=== PATIENT | female | born 1955 | race Caucasian/White ===

== ENCOUNTER 2020-08-03 11:11 | Outpatient (REF) | payer BC, SELFPAY ==
[2020-08-03 11:51] LABS: MANUAL DIFF FLAG NO
[2020-08-03 11:57] LABS: Basophils Percent Auto 0.4 % (0-2); Eosinophils Absolute Auto 0.2 X10*3/uL (0.0-0.4); Eosinophils Percent Auto 2.8 % (0-4); Hematocrit 38.7 % (37-47); Hemoglobin 13.1 g/dl (12.0-16.0); Imm Gran Abs Auto 0.03 X10*3/uL (0.00-0.03); Imm Gran Pct Auto 0.5 % (0.0-0.4); Lymphocytes Absolute Auto 1.4 X10*3/uL (1.2-4.9); Lymphocytes Percent Auto 24.2 % (20-40); Mean Corpuscular HGB Conc 33.9 g/dl (31.0-35.0); Mean Corpuscular Hemoglobin 34.7 pg (27.0-33.0); Mean Corpuscular Volume 102.7 fL (80-98); Mean Platelet Volume 10.1 fL (9.4-12.3); Monocytes Absolute Auto 0.5 X10*3/uL (0.1-1.2); Monocytes Percent Auto 8.1 % (2-11); Neutrophils Absolute Auto 3.7 X10*3/uL (2.0-8.3); Platelet Count 166 X10*3/uL (160-400); Red Blood Count 3.77 X10*6/uL (4.20-5.50); Red Cell Distribution Width 11.9 % (11.0-16.0); White Blood Count 5.7 X10*3/uL (4.8-10.8)
[2020-08-03 12:40] LABS: Alanine Aminotransferase 23 U/L (0-31); Albumin Level 4.2 g/dL (3.5-5.0); Alkaline Phosphatase 70 U/L (39-117); Anion Gap 12 (12-20); Aspartate Amino Transferase 25 U/L (5-31); Bilirubin Total 0.7 mg/dL (0.0-1.0); Blood Urea Nitrogen 17 mg/dL (9-16); Calcium 9.3 mg/dL (8.4-10.2); Carbon Dioxide 30 mmol/L (22-29); Chloride 101 mmol/L (96-108); Cholesterol 243 mg/dL; Estimated Glomerular Filt Rate > 60; Glucose Fasting 84 mg/dL (60-99); HDL Cholesterol 94 mg/dL; LDL Cholesterol Calculated 138 mg/dl; Potassium 4.3 mmol/L (3.3-5.1); Sodium 139 mmol/L (135-145); Total Protein 7.3 g/dL (6.5-8.0); Triglycerides 56 mg/dL
[2020-08-03 12:44] LABS: Carbamazepine Tegretol < 2.0 mcg/mL (5.0-12.0); Vitamin B12 1259 pg/mL (200-900)
== END 2020-08-03 11:12 | disposition home or self-care (01) ==
LOC: HO.LAB 11:11
PROVIDERS: PCP Internal Medicine; Visit Provider Internal Medicine
DX: Z00.00 Encounter for general adult medical examination without abnormal findings (principal); Z86.69 Personal history of other diseases of the nervous system and sense organs
CPT/HCPCS: 36415; 80053; 80061; 80156; 80184; 82306; 82607; 85025

== ENCOUNTER → 2021-06-03 13:12 | Outpatient (REF) | payer BC, SELFPAY ==
--- NOTE | 2021-06-03 | ECG_ITS ---
Hook-up date: 2021-06-03 13:46:00 Duration: 47:59:00 Test Indications: SYNCOPE Medications: 369357 QRS complexes 116 Ventricular ectopics which represent <1 % of total QRS comp. 58 Supraventricular ectopics which represent <1 % of total QRS comp. * Paced QRS complexs which represent % of total QRS comp. VENTRICULAR ECTOPY 110 Isolated 0 Bigeminal Cycles 3 Couplets 0 Runs 0 Beats in Runs * Beats LONGEST at * BPM at :: -- * Beats FASTEST at * BPM at :: -- SUPRAVENTRICULAR ECTOPY 50 Isolated 2 Couplets 1 Runs 4 Beats in Runs 4 Beats LONGEST at 180 BPM at 15:09:51 2021-06-04 4 Beats FASTEST at 180 BPM at 15:09:51 2021-06-04 HEART RATES 56 MIN at 22:27:51 2021-06-03 70 AVG 111 MAX at 10:48:53 2021-06-04 LONGEST RR 1.3200 secs at 03:52:42 2021-06-05 S-T LEVELS Channel 1 - 128 mm at 13:46:00 2021-06-03 - 128 mm at 13:46:00 2021-06-03 Channel 2 - 128 mm at 13:46:00 2021-06-03 - 128 mm at 13:46:00 2021-06-03 Channel 3 - 128 mm at 03:30:51 -- - 128 mm at 03:30:51 Underlying rhythm is sinus; Average ventricular rate 70/min; range 56-111/min; Rare supraventricular ectopy; Rare and isolated ventricular ectopy; 3 couplets; Dizziness in patient diary without specific time noted; however no findings to correlate on holter tracing. Referred By: Gibson Webster Overread By: TARA MEDINA
== END ==
LOC: HO.CARD 13:12
PROVIDERS: Visit Provider Psychiatry & Neurology Neurology
DX: R55 Syncope and collapse (principal)
CPT/HCPCS: 93225; 93226

== ENCOUNTER 2021-10-27 16:08 | Outpatient (REF) | payer BC, SELFPAY ==
--- NOTE | ~2021-10-27 | US_ITS ---
EXAMINATION: US VENOUS ULTRASOUND WITH DOPPLER LOWER EXTREMITY, LEFT CLINICAL INFORMATION: Left calf pain. Evaluate for deep vein thrombosis. COMPARISON: None TECHNIQUE: Ultrasound of the deep veins is performed from the hip to the calf with compression sonography and color and pulse Doppler assessment. Spectral analysis with color-flow imaging is performed. FINDINGS: The common femoral vein is compressible and exhibits a normal phasic waveform; this suggests that the iliac veins are widely patent above. Within the proximal thigh, the visualized profunda femoris vein is normal. The examined greater saphenous vein and saphenofemoral junction are normal. Superficial femoral vein is patent in the proximal, mid and distal thigh. Popliteal vein is normal to the level of the trifurcation. On compression robins scale and color Doppler images, the visualized posterior tibial and peroneal veins of the calf are normal. No evidence of Fernandes's cyst. US/US venous duplex LE LT IMPRESSION: No evidence of deep vein thrombosis in the left lower extremity.
[2021-10-27 16:49] LABS: MANUAL DIFF FLAG NO
[2021-10-27 18:11] LABS: Basophils Percent Auto 0.7 % (0-2); Eosinophils Absolute Auto 0.2 X10*3/uL (0.0-0.4); Eosinophils Percent Auto 3.8 % (0-4); Hematocrit 34.9 % (37.0-47.0); Hemoglobin 12.1 g/dl (12.0-16.0); Imm Gran Abs Auto 0.01 X10*3/uL (0.00-0.03); Imm Gran Pct Auto 0.2 % (0.0-0.4); Lymphocytes Absolute Auto 1.6 X10*3/uL (1.2-4.9); Lymphocytes Percent Auto 38.7 % (20-40); Mean Corpuscular HGB Conc 34.7 g/dl (31.0-35.0); Mean Corpuscular Hemoglobin 35.1 pg (27.0-33.0); Mean Corpuscular Volume 101.2 fL (80.0-98.0); Monocytes Absolute Auto 0.4 X10*3/uL (0.1-1.2); Neutrophils Percent Auto 46.6 % (45-73); Platelet Count 160 X10*3/uL (160-400); Red Blood Count 3.45 X10*6/uL (4.20-5.50); Red Cell Distribution Width 11.9 % (11.0-16.0); White Blood Count 4.2 X10*3/uL (4.8-10.8)
[2021-10-27 18:38] LABS: Alanine Aminotransferase 15 U/L (0-31); Albumin Level 4.4 g/dL (3.5-5.0); Alkaline Phosphatase 60 U/L (39-117); Anion Gap 14 (12-20); Aspartate Amino Transferase 24 U/L (5-31); Bilirubin Total 0.4 mg/dL (0.0-1.0); Blood Urea Nitrogen 7 mg/dL (9-16); C Reactive Protein 2.36 mg/dL (< or = 0.50); Calcium 9.3 mg/dL (8.4-10.2); Carbon Dioxide 28 mmol/L (22-29); Chloride 98 mmol/L (96-108); Estimated Glomerular Filt Rate > 60; Glucose Random 79 mg/dL (60-115); Potassium 4.4 mmol/L (3.3-5.1); Sodium 136 mmol/L (135-145); Total Protein 7.4 g/dL (6.5-8.0)
== END 2021-10-27 16:09 | disposition home or self-care (01) ==
LOC: HO.US 16:08
PROVIDERS: PCP Internal Medicine; Visit Provider Internal Medicine
DX: R60.0 Localized edema (principal); M79.662 Pain in left lower leg
CPT/HCPCS: 36415; 80053; 84443; 85025; 86140; 93971

== ENCOUNTER 2022-02-24 09:20 | Outpatient (REF) | payer BC, SELFPAY ==
[2022-02-24 12:48] LABS: Alanine Aminotransferase 14 U/L (0-31); Albumin Level 4.1 g/dL (3.5-5.0); Alkaline Phosphatase 74 U/L (39-117); Aspartate Amino Transferase 22 U/L (5-31); Bilirubin Total 0.3 mg/dL (0.0-1.0); Blood Urea Nitrogen 12 mg/dL (9-16); C Reactive Protein 0.15 mg/dL (< or = 0.50); Cholesterol 230 mg/dL; Estimated Glomerular Filt Rate > 60; Glucose Random 76 mg/dL (60-115)
[2022-02-24 13:37] LABS: Anion Gap 14 (12-20); Calcium 8.8 mg/dL (8.4-10.2); Carbon Dioxide 28 mmol/L (22-29); Chloride 99 mmol/L (96-108); Sodium 137 mmol/L (135-145)
== END 2022-02-24 09:21 | disposition home or self-care (01) ==
LOC: HO.HMGCLDS 09:20
PROVIDERS: PCP Internal Medicine; Visit Provider Internal Medicine
DX: R10.9 Unspecified abdominal pain (principal); E78.00 Pure hypercholesterolemia, unspecified; K80.20 Calculus of gallbladder without cholecystitis without obstruction
CPT/HCPCS: 36415; 80053; 82465; 86140

== ENCOUNTER 2022-03-10 09:27 | Outpatient (REF) | payer BC, SELFPAY ==
--- NOTE | ~2022-03-10 | US_ITS ---
EXAMINATION: US PELVIS COMPLETE US PELVIS ENDOVAGINAL CLINICAL INFORMATION: Pelvic pain COMPARISON: Report from 09/17/2013 TECHNIQUE: Transabdominal and transvaginal images of the pelvis were obtained. FINDINGS: UTERUS: Anteverted. Normal size and contour, measuring 6.5 x 3.1 x 3.8 cm (cervix to fundus x AP x transverse). Uniform, homogeneous endometrium, 2-3 mm in width. There are a few scattered calcifications in the uterine myometrium, nonspecific. 1.6 cm and 1.2 cm fundal leiomyomata are seen. RIGHT OVARY: Right ovary not seen. No adnexal mass. LEFT OVARY: Normal-appearing left ovary measures 1.4 x 0.8 x 1.1 cm. No adnexal mass. FREE FLUID: Small physiologic volume of free fluid in the pelvis pelvic free fluid. US/US pelvic and transvaginal IMPRESSION: Small fundal leiomyomata. Thin endometrial stripe. Right ovary not seen. No adnexal mass.
--- NOTE | ~2022-03-10 | US_ITS ---
EXAMINATION: US ABDOMEN COMPLETE CLINICAL INFORMATION: Abdominal pain. COMPARISON: None TECHNIQUE: Real-time imaging of the abdominal viscera. FINDINGS: PANCREAS: Normal. ABDOMINAL AORTA: The proximal, mid, and distal segments are normal in caliber. INFERIOR VENA CAVA: Visualized portions are normal. LIVER: Normal. The liver is normal in size. The liver contour is normal. Parenchymal echogenicity is normal. No focal hepatic lesion. There is no intrahepatic biliary duct dilatation seen. GALLBLADDER: The gallbladder is physiologically distended. Multiple mobile gallstones are present. No evidence of gallbladder wall thickening or pericholecystic fluid. The gallbladder wall is upper limits of normal in thickness. The fence rider's measurement is exaggerated. COMMON BILE DUCT: Normal in caliber measuring 0.4 cm in diameter. RIGHT KIDNEY: Normal. No hydronephrosis. No renal calculi or focal parenchymal lesions. The kidney measures 9.7 cm in maximum dimension. LEFT KIDNEY: Nonspecific 1-2 mm echogenic focus in the lower pole of the left kidney possibly a nonshadowing stone or vascular calcification. No hydronephrosis. No renal calculi or focal parenchymal lesions. The kidney measures 9.4 cm in maximum dimension. SPLEEN: Normal. The spleen measures 7.7 cm in maximum dimension. FREE FLUID: None. US/US abdomen complete IMPRESSION: 1-2 mm nonshadowing stone or vascular calcification in the lower pole of the left kidney.
== END 2022-03-10 09:28 | disposition home or self-care (01) ==
LOC: HO.HMGCX 09:27
PROVIDERS: PCP Internal Medicine; Visit Provider Internal Medicine
DX: R10.0 Acute abdomen (principal); K82.9 Disease of gallbladder, unspecified
CPT/HCPCS: 76700; 76830; 76856

== ENCOUNTER 2024-04-25 12:17 | Outpatient (REF) | payer MEDICARE, SELFPAY ==
--- NOTE | ~2024-04-25 | US_ITS ---
EXAMINATION: MM DIAGNOSTIC DIGITAL BREAST TOMOSYNTHESIS, BILATERAL Limited right breast ultrasound. CLINICAL INFORMATION: 68-year-old female with a right breast palpable lump in the upper outer quadrant for 2 months. Family history of breast cancer including the patient's sister. COMPARISON: Mammography: Comparison is made with relevant prior exams. TECHNIQUE: Digital breast mammography with tomosynthesis is performed in both the craniocaudal and mediolateral oblique views along with computer-aided detection (CAD). Limited right breast ultrasound. FINDINGS: The breasts are heterogeneously dense, which may obscure small masses (ACR BI-RADS breast composition Category c). BB marker in the upper outer breast at site of palpable lump without underlying abnormality. There are no significant masses, abnormal calcifications, or other abnormalities. Targeted color Doppler ultrasound scanning in the lateral right breast area of patient's palpable lump from 7-11 o'clock demonstrates normal fibronodular breast tissue. There is no sonographic abnormality. Results are provided to the patient at time of visit by the technologist. US/US breast RT limited mamm only IMPRESSION: Left: Negative. Right: No mammographic or sonographic abnormality to account for the patient's right breast palpable lump. Recommend clinical evaluation and follow-up. Given patient's family history of breast cancer, palpable lump without mammographic or sonographic abnormality and dense breast tissue recommend breast MRI with contrast for further evaluation. Breast MRI would need to be ordered by the patient's providing clinician. ASSESSMENT: BI-RADS BI-RADS 1 - Negative RECOMMENDATION: 1 year F/U This patient's information was entered into a reminder system with a target due date for their next mammogram. Electronically signed by: Thuy Wade DO 04/28/2024 09:44 AM [facility]
--- OUTSIDE RECORDS SUMMARY | 2024-04-25 12:47 | XMS_ITS | Continuity of Care Document ---
Author Organization [facility] Address [address] [place] [address] Phone Care Team Providers Care Motorcycle Mechanic Name Role Phone Jade Alaniz PA-C Unavailable Unavailable Allergies, Adverse Reactions, Alerts Substance Reaction Status Criticality No Known Allergies Active No Inform ation Medications Medication Instructions Dosage Effective Dates (start - stop) Status Comments LevETIRAcetam 500MG TAB TAKE ONE TABLET BY MOUTH TWICE DAILY 500 MG - Active primidone 250 mg tablet take 1 tablet by oral route 2 times every day for maintenance 250 MG - Active Epitol 200 mg tablet take 1 tablet by or al route every 12 hours 200 MG - Active Procedures Procedure Date ROUTINE VENIPUNCTURE OFFICE/OUTPATIENT VISIT, EST OFFICE/OUTPATIENT VISIT, EST OFFICE/OUTPATIENT VISIT, NEW Composite, 1 Surface, Anterior 09 Composite, 1 Surface, Anterior 09 Composite, 1 Surface, Anterior 09 Composite, 1 Surface, Anterior 09 Prophylaxis, Adult Topical fluor w/o prophy adult 09 Limited Oral Evaluation Periapical, First Film Periapical ea add Bitweings, 4 Films Advance Directives Directive Yes / No Effective Date File Name No Information Encounters Encounter Description Practice Location Reason(s) For Visit Diagnoses Date Provider Providers Copied on Encounter [facility], [address], [place], [place], [id number] , [place] tel:[phone] [facility] [place] No Information 6 Katty Hansen. [address] [facility], [id number], [place], [place], [id number], [place]. tel:[phone] [facility], [address], [place], [place], [id number] , [place] tel:[phone] [facility] [place] No Information 6 Katty Hansen. [address] [facility], [id number], [place], [place], [id number], [place]. tel:[phone] [facility], [address], [place], [place], [id number] , [place] tel:[phone] [facility] [place] Hyponatremia 6 Katty Hansen. [address] [facility], [id number], [place], [place], [id number], [place]. tel:[phone] [facility], [address], [place], [place], [id number] , [place] tel:[phone] [facility] [place] Blood draw only (chief complaint) Hyponatremia 6 Katty Hansen. [address] [facility], [id number], [place], [place], [id number], [place]. tel:[phone] [facility], [address], [place], [place], [id number] , [place] tel:[phone] [facility] Hyponatremia 6 Katty Hansen. [address] [facility], [id number], [place], [place], [id number], [place]. tel:[phone] OFFICE/OUTPA TIENT VISIT, EST [facility], [address], [place], [place], [id number] , [place] tel:[phone] [facility] Neurologist referral (chief complaint) Seizure disorder 6 Katty Hansen. [address] [facility], [id number] , [place], [place], [id number], [place]. tel:[phone] OFFICE/OUTPA TIENT VISIT, EST [facility], [address], [place], [place], [id number] , [place] tel:[phone] [facility] [place] general check up (chief complaint)se izure (chief complaint) Seizure disorder 6 No Information OFFICE/OUTPA TIENT VISIT, NEW [facility], [address], [place], [place], [id number] , [place] tel:[phone] [facility] [place] Seizure (new) (chief complaint)es tablish care (chief complaint) [facility] No Information [facility], [address], [place], [place], [id number] , [place] tel:[phone] [facility] [place] No Information 9 No Information [facility], [address], [place], [place], [id number] , [place] tel:[phone] [facility] [place] No Information 9 No Information [facility], [address], [place], [place], [id number] , [place] tel:[phone] [facility] [place] No Information 9 No Information [facility], [address], [place], [place], [id number] , [place] tel:[phone] [facility] [place] No Information 8 No Information Family History Family Member Type Diagnosis Age At Onset No Information Payers Payer name Insurance type Covered democrat ID Authoriza tion(s) [facility] Adult Expansion CAP [id number] [facility] Code 18 [id number] Social History Type Description Quantity Date Captured Comments Sex Female Smoking Status No Information Chief Complaint And Reason For Visit No Information Plan Of Treatment Date Type Action Status Goal Flu Preservative Free, 5yr+ and OB (Tri). Due on due Goal FOBT. Due on due Goal Breast exam. Due on due Goal Colonoscopy. Due on due Goal PAP (21 + yr). Due on due Goal Tdap. Due on due Goal CONTRACT NEGOTIATOR exam. Due on due Goal Mammogram. Due on due Goal Tdap. Due on due Goal PAP (21 + yr). Due on due Goal FOBT. Due on due Goal CONTRACT NEGOTIATOR exam. Due on due Goal Breast exam. Due on due Goal Flu Preservative Free, 5yr+ and OB (Tri). Due on due Goal Mammogram. Due on due Goal Colonoscopy. Due on due Goal Flu Preservative Free, 5yr+ and OB (Tri). Due on due Goal Breast exam. Due on due Goal Mammogram. Due on due Goal CONTRACT NEGOTIATOR exam. Due on due Goal Colonoscopy. Due on due Goal Tdap. Due on due Goal PAP (21 + yr). Due on due Goal FOBT. Due on due Goal CONTRACT NEGOTIATOR exam. Due on due Goal Tdap. Due on due Goal Breast exam. Due on due Goal FOBT. Due on due Goal Colonoscopy. Due on due Goal Mammogram. Due on 6 due Goal Flu Preservative Free, 5yr+ and OB (Tri). Due on due Goal PAP (21 + yr). Due on due Goal Mammogram. Due on 6 due Goal CONTRACT NEGOTIATOR exam. Due on due Goal Tdap. Due on due Goal Colonoscopy. Due on due Goal PAP (21 + yr). Due on due Goal FOBT. Due on due Goal Breast exam. Due on due Goal Flu Preservative Free, 5yr+ and OB (Tri). Due on due Goal Tdap. Due on due Goal CONTRACT NEGOTIATOR exam. Due on due Goal Colonoscopy. Due on due Goal FOBT. Due on due Goal PAP (21 + yr). Due on due Goal Mammogram. Due on 6 due Goal Breast exam. Due on due Goal Flu Preservative Free, 5yr+ and OB (Tri). Due on due Goal Colonoscopy. Due on 015 due Goal FOBT. Due on due Goal Tdap. Due on due Goal CONTRACT NEGOTIATOR exam. Due on due Goal PAP (21 + yr). Due on due Goal Flu Preservative Free, 5yr+ and OB (Tri). Due on due Goal Mammogram. Due on 5 due Goal Breast exam. Due on 015 due Referral Referred To: Farheen Treadwell MD [address] [facility], [address] [place], [phone] Ordered: Referrals: Neurology. Farheen Treadwell MD. Evaluate and treat Appointment date/timeframe: 09/15/2015 ordered Referral Referred To: [facility] Neurology [address] [place], [phone] Ordered: Referrals: Neurology. [facility] Neurology. Evaluate and treat Appointment date/timeframe: 03/30/2015 ordered History Of Present Illness Encounter Date Complaint History Of Prese nt Illness Blood draw only Neurologist referral Pt is reque sting a referral to Neurology for seizure disorder. Last seizure 3d ago. Currently taking Primidone 250mg BID and Carbamazepine 200mg BID. Pt recently relocated from the [facility]. She was previously on Keppra, along with current meds. After 3 yrs of seizure free activity, her physician discontinued Keppra. She has had at least 2 seizures since. seizure general check up establish care says ER only gav e her Primidone 200 bid instead of 250 bid.PSHx: noneFHx: siblings with dm. no seizure. no cva. sister with [place] age 58. another sister from lung [place] age 67.SHx: used to work at [employer]. . 1 child. no tob. quit etoh age 41 yr. used cocaine age 31. Seizure (new) Associated sympt oms include altered level of consciousness. Additional information: seen in ER 02/23/15 for seizure after stopping her meds x 3 weeks. [facility] 12[facility]. last seizure prior had been 2012. she thought she no longer needed meds and stupidly stopped them 3 weeks ago. Instructions Date Instruction Additional Infor mation No Information Assessments Type Assessment Date No Information
== END 2024-04-25 12:18 | disposition home or self-care (01) ==
LOC: HO.MAMMO 12:17
PROVIDERS: PCP Internal Medicine; Visit Provider Internal Medicine
DX: N63.11 Unspecified lump in the right breast, upper outer quadrant (principal)
CPT/HCPCS: 76642; 77062; 77066

== ENCOUNTER → 2024-04-25 12:45 | Outpatient (BNV) | payer MEDICARE, SELFPAY | PROVIDERS: PCP Internal Medicine; Visit Provider Internal Medicine | DX: N63.11 Unspecified lump in the right breast, upper outer quadrant (principal); Z80.3 Family history of malignant neoplasm of breast | CPT/HCPCS: 76642; 77066; G0279 ==